=== PATIENT | female | born 1990 | race Caucasian/White ===

== ENCOUNTER → 2016-09-26 | Outpatient (CLI) | payer BC | LOC: MOB LAB 14:27 | PROVIDERS: ATTEND Family Medicine | DX: F39 Unspecified mood [affective] disorder (principal) | CPT/HCPCS: 36415; 84443 ==

== ENCOUNTER → 2016-10-22 | Outpatient (CLI) | payer BC ==
--- NOTE | 2016-10-22 18:18 | DI ---
LEFT THUMB EXAM, 10/22/2016 5:21 PM: Clinical History: Left thumb pain. Previous Exam: None at this facility. 3 views are submitted. There is no acute soft tissue, osseous, or joint abnormality. Reading: Normal left thumb exam.
== END ==
LOC: MOB RAD 17:22
DX: M79.645 Pain in left finger(s) (principal); F17.200 Nicotine dependence, unspecified, uncomplicated
CPT/HCPCS: 73140

== ENCOUNTER 2017-06-11 19:00 | Observation (INO) ==
[2017-06-11] MEDS ORDERED: NORMAL SALINE 10 ML SYRINGE FLUSH IVP PRN ×2 (19:26→21:47)
[2017-06-11] MEDS ORDERED: ONDANSETRON 4 MG/2 ML VIAL IVP ONE (19:26)
[2017-06-11] MEDS ORDERED: Sodium Chloride 0.9% 1,000 ML PRIMARY IV ONE (19:26)
[2017-06-11] MEDS ORDERED: HYDROmorphone 2 MG/1 ML IVP ONE ×2 (19:30→21:49)
[2017-06-11 19:43] LABS: BILIRUBIN,URINE NEGATIVE (NEG); CLARITY,URINE CLEAR (CLEAR); COLOR,URINE YELLOW (Y); GLUCOSE, URINE (UA) NEGATIVE (NEG); NITRATE,URINE NEGATIVE (NEG); OCCULT BLOOD,URINE Trace-intact (NEG); PROTEIN,URINE NEGATIVE (NEG); UROBILINOGEN,URINE 0.2 EU/dL (0.2)
[2017-06-11 19:45] LABS: BACTERIA,URINE FEW; SQUAMOUS EPITHELIAL CELL,UR MANY; URINE SAMPLE TYPE VOIDED SPECIMEN
[2017-06-11 19:48] LABS: EOSINOPHILS % (AUTO) 2.4 % (0-8); Hematocrit [HCT] 48.3 % (37.0-47.0); Hemoglobin [HGB] 16.4 g/dL (12.0-16.0); MEAN CORPUSCULAR HEMOGLOBIN 32.4 PG (27-31); MEAN CORPUSCULAR VOLUME 95 FL (81-99); MEAN PLATELET VOLUME 8.6 FL (7.4-12.2); MONOCYTES % (AUTO) 9.2 % (5-15); NEUTROPHILS % (AUTO) 58.6 % (50-80); RED BLOOD COUNT 5.06 10^6/uL (4.20-5.40)
[2017-06-11 19:49] LABS: BASOPHILS # (AUTO) 0.16 10*3/UL; BASOPHILS % (AUTO) 1.3 % (0-1); LYMPHOCYTES # (AUTO) 3.55 10*3/uL; MONOCYTES # (AUTO) 1.14 10*3/UL (0.3-0.8); NEUTROPHILS # (AUTO) 7.29 10*3/UL; PLATELET MORPHOLOGY COMMENT NORMAL MORPHOLOGY (NORM); RBC MORPHOLOGY COMMENT NORMAL MORPHOLOGY (NORM); WBC MORPHOLOGY COMMENT NORMAL MORPHOLOGY (NORM)
[2017-06-11 19:57] LABS: BLOOD UREA NITROGEN 9 mg/dL (7-22); LIPASE 48 IU/L (23-300); SERUM ALBUMIN 4.5 g/dL (3.5-4.8)
--- NOTE | 2017-06-11 21:22 | DI ---
EXAM: US Uterus, Limited CLINICAL HISTORY: Physician Notes: Tech Comments: TECHNIQUE: Real-time ultrasound of the maternal uterus (limited) with image documentation. COMPARISON: 06/10/17 FINDINGS: Fetus: The uterus demonstrates no evidence for gestational sac. Evaluation is limited given only transabdominal imaging provided. Adnexa: Right ovary measures 2.5 x 1.3 x 1.8 cm, with normal flow. The left ovary measures 20.5 x 2.1 x 1.9 cm, with normal flow. Free fluid: Mild free fluid is seen within the right adnexal region. IMPRESSION: 1. No sonographic evidence for intrauterine on these provided transabdominal only images. This may be related to very early though please note anovulatory or ectopic still cannot be technically excluded. Please correlate with beta hCG. Short interval follow-up is recommended. 2. Mild free fluid. Ovaries are sonographically unremarkable.
--- NOTE | 2017-06-11 21:24 | DI ---
EXAM: US Abdomen Complete CLINICAL HISTORY: Right lower quadrant pain TECHNIQUE: Real-time ultrasound of the abdomen (complete) with image documentation. COMPARISON: No relevant prior studies available. FINDINGS: Liver: Liver length 18.3 cm. Slightly heterogeneous and echogenic appearance to the parenchyma. No intrahepatic bile duct dilation. Gallbladder: Gallbladder is sonographically unremarkable. Common bile duct is normal caliber at 3 mm. No gallstones. Common bile duct: See above. Pancreas: Unremarkable as visualized. Kidneys: Right kidney length 10.8 cm. Left kidney length 12.0 cm. No stones. No hydronephrosis. Spleen: Splenic length 10.9 cm. Aorta: Unremarkable. No aneurysm. Inferior vena cava: Unremarkable. IMPRESSION: 1. Hepatic steatosis. 2. Regional anatomy otherwise unremarkable sonographically.
[2017-06-11] MEDS: Sodium Chloride 0.9% 1,000 ML PRIMARY IV SCH (23:20)
[2017-06-11] MEDS ORDERED: Ondansetron ODT Tab 4 MG TAB PO PRN (23:26)
[2017-06-11] MEDS ORDERED: Ondansetron ODT Tab 4 MG TAB PO ONE (23:27)
[2017-06-12] MEDS: MORPHINE SULFATE 2 MG/1 ML IVP PRN ×2 (03:29→07:38)
--- NOTE | 2017-06-12 03:39 | PDOC ---
Abdomen/Flank HPI - General Chief Complaint: Abdomen Pain Stated Complaint: abd. pain Date Seen by Provider: 06/11/17 Time Seen by Provider: 19:10 Source: POSITIVE: Patient, Old records Exam Limitations: POSITIVE: No limitations Nurse's Notes Reviewed & Considered: Yes - History of Present Illness Initial Comments: The patient is a 27-year-old female. She states she was seen in the clinic yesterday for lower abdominal pain; at that time patient believe she may have an ovarian cyst, as she has apparently been diagnosed was symptomatic ovarian cysts in the past. A test was done in the clinic and it was found to be positive; quantitative beta-hCG yesterday was 1258.5. Pelvic ultrasound was done from the clinic which showed no sonographic evidence of an intrauterine . There was some free fluid around the right adnexa. Patient was discharged to home. 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 Patient has had no vaginal bleeding. No fevers or chills. She's had some nausea but no vomiting. No diarrhea. No melena, hematochezia, hematemesis, dysuria or hematuria. Body Location Affected: REPORTS: Abdomen Timing: REPORTS: Abrupt Duration: <24 hours Severity: Moderate Quality: REPORTS: "Pain" Abdominal Pain Onset Location: REPORTS: RLQ, LLQ, Suprapubic Abdominal Pain Radiation: REPORTS: No radiation Context: REPORTS: Other (Recently diagnosed as being ) Modifying Factors: improves with: Nothing Associated Symptoms: REPORTS: Denies symptoms, Other (Nausea) Similar Symptoms Previously: No Recent Care Received: REPORTS: Recently Seen, Treated by MD (As above) Any Prior Injuries Related to Current Complaint?: No - Patient Home Medications Home Medications: Home Medications Sertraline HCl 1 tab PO DAILY #30 tab 12/18/16 hydrocodone 7.5 mg-acetaminophen 325 mg tablet 1 tab PO Q6H PRN #20 tab - Patient Allergies Allergies/Adverse Reactions: Allergies 3 Allergy/AdvReac Type Severity Reaction Status Date / Time amoxicillin Allergy Severe Anaphylaxis Verified 06/12/17 00:22 Penicillins Allergy Severe Anaphylaxis Verified 06/12/17 00:22 Past Medical History - heen HEENT History: Denies History Cardiovascular History: Denies History Respiratory History: Asthma Gastrointestinal History: Denies History Genitourinary History: Denies History Endocrine History: Denies History Musculoskeletal History: Denies History Prosthesis or Implant: No Neurological History: Denies History Blood Disorders: Denies History Psychiatric History: Denies History History of Sexually Transmitted Diseases: No Female Reproductive History: Denies History Obstetrical History: Denies History Cancer History: Denies History In Past Year Been Physically Harmed or Verbally Threatened: No History of MDRO: No History of Other Communicable Diseases: No Tobacco Use: Current Every Day Smoker Alcohol Use: Rarely In the Past 12 Months, Have Used or Abuse Any Substance: None Previous Surgical History: No Anesthesia Reactions: No Malignant Hyperthermia: No Significant Family History: Asthma, Cancer, COPD, Diabetes, Seizures Past Medical History Reviewed: Reviewed - No Changes ROS - Limitations ROS Limitations: No Limitations Constitution: REPORTS: Denies Symptoms Cardiovascular: REPORTS: Denies Cardiac Symptoms Respiratory: REPORTS: Denies Resp Symptoms Neurological: REPORTS: Denies Neuro Symptoms Gastrointestinal: REPORTS: Abdominal Pain, Nausea Endocrine: REPORTS: Denies Symptoms Musculoskeletal: REPORTS: Denies MS Symptoms Genitourinary: REPORTS: Denies Symptoms Eyes: REPORTS: Denies Symptoms ENT: REPORTS: Denies Symptoms Skin: REPORTS: Denies Skin Symptoms Lympathic: REPORTS: Denies Lympathic Symptoms Immunologic: POSITIVE: Denies Symptoms Psychiatric: POSITIVE: Denies Psych Symptoms Abdominal/Flank Pain PE - General Appearance General Appearance: POSITIVE: Alert, Cooperative, No Evidence of Trauma, Moderate Distress. NEGATIVE: No Acute Distress - HEENT HEENT: POSITIVE: Head Inspection Nml, Eyes Inspection Nml, Ears Inspection Nml, Nose Inspection Nml, Oral/Dental Inspect. Nml, Pharynx Inspect. Nml, PERRL, EOMI - Neck Neck: POSITIVE: Normal Inspection, No Apparent Injury - Respiratory Respiratory: POSITIVE: No Respiratory Distress, Breath Sounds Normal, Chest Non- Tender - Cardiovascular Cardiovascular: POSITIVE: Regular Rate and Rhythm, Heart Sounds Normal, Equal Pulses, Strong Pulses Peripheral Pulses: Radial (R): 2+, Radial (L): 2+ - Chest Chest: POSITIVE: Non Tender - Abdomen Abdomen: Soft: (All Quadrants), Normal Bowel Sounds: (All Quadrants), Denies Tenderness: (RUQ), (LUQ), No Splenomegaly: (All Quadrants), No Hepatomegaly: ( All Quadrants), No Guarding: (All Quadrants), No Rebound: (All Quadrants), No Palpable Pulse: (All Quadrants), No Palpabale Mass: (All Quadrants), No Distention: (All Quadrants), No Rigidity: (All Quadrants), Tenderness Noted: ( RLQ), (LLQ) Additional Abdominal Details: Abdominal examination shows bowel sounds to be present. Patient expresses somewhat poorly localized abdominal pain, but most prominent in the paraumbilical area and right hand left lower abdominal quadrants. No masses, organomegaly or rebound. 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 Mild free fluid around the right adnexa. Lab Results Reviewed by Me: Yes (quantitative beta-hCG down to 481.63) CBC and BMP: 06/11/17 19:45 06/11/17 19:45 - Patient's Progress Pain Medication Addressed: POSITIVE: Yes (Patient given Dilaudid IV for analgesia) School/Work Release Addressed: POSITIVE: Not Applicable Re-examine Time: 21:40 Re-Examine Comment: Case discussed with Dr. Carvalho, environmental conservation professor. There is some concern for ectopic . Advised the patient that I'm not completely sure what the source of her abdominal pain is, although an ectopic is my primary concern. Patient admitted to Dr. Carvalho for further evaluation and treatment. Patient received partial relief of her pain from analgesics administered in the emergency room. Status: POSITIVE: Improved, Re-Examined - Consult Consult (If Yes, Name of Consulting MD & Time Called): Yes (Dr. aCrvalho, OB/ MILITARY PROFESSIONAL, [id number]) Consulting MD will see pt:: POSITIVE: [facility] [place] Admit Counseled: POSITIVE: Patient, Family, RE: Lab Results, RE: Radiology Results, RE : DX, RE: Need for F/U Patient Care Time - Estimated PCT Patient Care Time (In Minutes): 60 Vital Signs - Recent Vital Signs Vital Signs: Vital Signs (Last 8 hours) Temp Pulse Pulse Resp BP BP Pulse Ox 06/11/17 23:12 98.5 F 113 H 20 101/71 91 06/11/17 22:30 98.0 F 93 18 106/59 94 - VS Reviewed Vital Signs Reviewed: Yes Discharge Clinical Impression: Abdominal pain, Abdominal pain in Discharge Disposition: Admit to Inpatient Condition: Good Date Decision to Admit to Inpatient: 06/11/17 Time Decision to Admit to Inpatient: 21:30
[2017-06-12 07:11] LABS: Hematocrit [HCT] 39.5 % (37.0-47.0); Hemoglobin [HGB] 13.3 g/dL (12.0-16.0); MEAN CORPUSCULAR HEMOGLOBIN 31.9 PG (27-31); MEAN CORPUSCULAR HGB CONC 33.6 g/dL (33-37); MEAN CORPUSCULAR VOLUME 95 FL (81-99); RED BLOOD COUNT 4.16 10^6/uL (4.20-5.40)
[2017-06-12 07:12] LABS: EOSINOPHILS % (AUTO) 2.1 % (0-8); LYMPHOCYTES # (AUTO) 3.86 10*3/uL; MEAN PLATELET VOLUME 8.8 FL (7.4-12.2); MONOCYTES % (AUTO) 8.6 % (5-15); NEUTROPHILS # (AUTO) 9.05 10*3/UL; NEUTROPHILS % (AUTO) 61.9 % (50-80)
[2017-06-12 07:13] LABS: BASOPHILS # (AUTO) 0.15 10*3/UL; EOSINOPHILS # (AUTO) 0.31 10*3/UL; MONOCYTES # (AUTO) 1.26 10*3/UL (0.3-0.8); PLATELET MORPHOLOGY COMMENT NORMAL MORPHOLOGY (NORM); RBC MORPHOLOGY COMMENT NORMAL MORPHOLOGY (NORM); WBC MORPHOLOGY COMMENT NORMAL MORPHOLOGY (NORM)
[2017-06-12] MEDS: Sodium Chloride 0.9% 1,000 ML PRIMARY IV SCH (07:38)
--- NOTE | 2017-06-12 08:36 | PDOC ---
HPI - History of Present Illness Date of Service: 06/12/17 Chief Complaint: Pelvic Pain, Positive Test History of Present Illness: This 27-year-old 2 para 1 female was seen in the outpatient clinic several days ago for a complaint of abdominal pain. During that evaluation she was found have a positive test with a quantitative hCG approximately 1200. Ultrasound revealed no intrauterine but no significant amount of free fluid in the pelvis. The patient was allowed to leave. She presented to the emergency room last evening complaining of increased pain but no bleeding area hCG obtained last night was down to 400. Her H&H were normal with a hemoglobin of 16. Ultrasound revealed, again, no intrauterine but no significant free fluid in the pelvis. The patient was admitted overnight for observation with a plan of repeating the hCG and CBC this morning. Her hemoglobin this morning was down to 13. She has persistent abdominal pain which is diffuse as well as right lower quadrant. Her vital signs are stable and normal. Pelvic ultrasound was repeated this morning, this time with a vaginal probe, and a significant blood clot is seen in the pelvis. Given the persistent abdominal pain and the new finding of significant volume of blood in the pelvis, the patient is recommended for laparoscopic treatment of her ectopic with probable salpingectomy depending on the condition of the tube. It is possible that she has expelled the out the end of the tube, given the precipitous drop in hCG. If this is the case, we will irrigate her abdomen and pelvis as much as possible and try to preserve the tube. Past Medical History Tobacco Use: Current Every Day Smoker Do you dip or chew tobacco: No In the Past 12 Months, Have Used or Abuse Any of the Following Substance: None Medication / Allergies Home Medications: Home Medications Medication Instructions Recorded Confirmed Type Sertraline HCl 1 tab PO DAILY #30 tab 12/18/16 06/11/17 Rx hydrocodone 7.5 mg-acetaminophen 1 tab PO Q6H PRN #20 tab 06/10/17 06/11/17 Rx 325 mg tablet Allergies/Adverse Reactions: Allergies 3 Allergy/AdvReac Type Severity Reaction Status Date / Time amoxicillin Allergy Severe Anaphylaxis Verified 06/12/17 06:59 Penicillins Allergy Severe Anaphylaxis Verified 06/12/17 06:59 Exam - Vitals Vital Signs: Vital Signs Temperature 97.2 F Temperature Source Temporal Artery Scan Pulse Rate [Pulse Oximeter] 84 Pulse Rate 93 Respiratory Rate 18 Blood Pressure [Left Arm] 108/60 Blood Pressure 106/59 Pulse Ox 95 Oxygen Delivery Method Room Air Height 5 ft 6 in Weight 195 lb Results - Labs CBC and BMP: 06/12/17 06:36 06/11/17 19:45 Assessment and Plan - Assessment / Plan Additional Assessment/Plan Details: Probable right tubal ectopic with hemorrhage. Planned laparoscopic treatment of ectopic with possible salpingectomy. - Time/Visit Time Spent With Patient: 15-25 Minutes
[2017-06-12] MEDS ORDERED: BUPIVACAINE 0.5% W/EPI MPF -30 ML VIAL IV ONE (08:41)
[2017-06-12] MEDS ORDERED: PROPOFOL 10 MG/1 ML (200 MG/20 ML) VIAL IV ONE (08:53)
[2017-06-12] MEDS ORDERED: MIDAZOLAM 5 MG/1 ML ONE (08:53)
[2017-06-12] MEDS ORDERED: fentaNYL Inj 250 MCG/5 ML VIAL ONE (08:53)
[2017-06-12] MEDS ORDERED: LIDOCAINE MPF 2% - 5 ML (20 MG/1 ML) ONE (08:53)
[2017-06-12] MEDS ORDERED: ROCURONIUM 10 MG/1 ML - 5 ML VIAL IVP ONE (08:54)
--- NOTE | 2017-06-12 09:16 | DI ---
US OB Transvaginal,06/12/2017 7:28 AM: Clinical History: Possible ectopic . Previous Exam: June 11, 2017 8:50 PM. Findings: Multiple transvaginal grayscale and color Doppler sonographic images are obtained through the pelvis, and demonstrate a large complex hypoechoic mass within the cul-de-sac measuring 6.8 x 2.8 cm in sagi ttal cross section. The uterus appears grossly normal. There is no evidence of gestational sac within the uterus. The endometrial stripe measures approximately 4 mm. Impression: Large hypoechoic mass within the cul-de-sac most likely representing clot or hemorrhage. This was not appreciated on the transabdominal exam.
[2017-06-12] MEDS ORDERED: KETAMINE 100 MG/1 ML - 5 ML ONE (09:23)
[2017-06-12] MEDS ORDERED: ONDANSETRON 4 MG/2 ML VIAL ONE (09:38)
[2017-06-12] MEDS ORDERED: SUGAMMADEX SODIUM 200 MG/2 ML VIAL IV ONE (09:38)
[2017-06-12] MEDS ORDERED: KETOROLAC 30 MG/1 ML VIAL ONE (09:38)
[2017-06-12] MEDS ORDERED: Lactated Ringers 1,000 ML PRIMARY IV ONE (09:39)
[2017-06-12] MEDS ORDERED: NORMAL SALINE 10 ML SYRINGE FLUSH IVP PRN ×2 (10:04→10:29)
[2017-06-12] MEDS ORDERED: IBUPROFEN 800 MG TABLET PO PRN (10:04)
[2017-06-12] MEDS ORDERED: LIDOCAINE HCL 2 % 10 ML JELLY URO-JECT TOPICAL PRN (10:04)
[2017-06-12] MEDS ORDERED: Ondansetron ODT Tab 8 MG TAB PO PRN (10:04)
--- NOTE | 2017-06-12 10:23 | OB.OP.NOTE ---
Operative Report Surgeon: Maia Bank Note Designer: Kraig Marie MD Anesthesia Type: General Anesthesia Provider: Walt Pollock CRNA Surgery Date: 06/12/17 Preoperative Diagnosis: Ectopic with Hemorrhage Postoperative Diagnosis: Left Ampullary Tubal Ectopic with Hemorrhage Procedure: Laparoscopic Left Salpingectomy Estimated Blood Loss (mL): 300 Fluids: 1200 ml Complications: None Findings at Surgery: Copious fresh blood and blood clot in the pelvis and upper abdomen. Obvious ectopic in the ampullary portion of the left fallopian tube with rupture. Normal right tube and ovary. Normal left ovary. Normal uterus. Indications for the Procedure: Abdominal pain with positive test and new finding of significant fluid in the abdomen and pelvis consistent with probable blood. Presumptive diagnosis ectopic with rupture. Description of Procedure: The patient was taken to the operating room and placed supine where general endotracheal anesthesia was administered. She was then placed in lithotomy position in Rusty stirrups. Examination under anesthesia was unremarkable. She was prepped and draped in the normal sterile fashion and her bladder was emptied of urine with a straight catheter. An open sided speculum was placed in the vagina and the anterior lip of the cervix was grasped with a single- tooth tenaculum. Uterus was sounded to a depth of 8 cm. A HUMI uterine manipulator was introduced into the endometrial cavity and the tubal lumen was applied with air. The tenaculum was removed from the cervix and the speculum was removed from the vagina. Attention was then turned to the abdomen were corpus and Marcaine with epinephrine was injected in the midline at the inferior edge of the umbilicus and just lateral to that on both sides. A scalpel was used to create a 5 mm vertical incision at the inferior edge of the umbilicus. Penetrate USED to grasp the abdominal wall just lateral to the incision on both sides and elevate while a 5 mm non-bladed laparoscopic trocar was introduced through the incision into the peritoneal cavity with a direct insertion technique under direct visualization with a 5 no meter scope placed within the port. The abdomen was insufflated with carbon dioxide. Photographs were taken of the pelvis with findings as noted above. A second 5 mm incision was then made in the midline just above the pubic bone after injection with Marcaine. A 5 mm non-bladed has A trocar was introduced an incision at this site into the perineal cavity under direct visualization. A suction oenologist was passed to the suprapubic port and this was used to irrigate and suction the pelvis. After the majority of blood and clot were removed inspection revealed the ectopic in the ambulatory portion of the left fallopian tube. A third incision was made on the left lateral aspect of the abdominal wall just below the umbilicus and lateral to the rectus muscle after injection with Marcaine. A 10 mm non-bladed Footwear Stitcher scopic trocar was introduced through small incision at this side into the perineal cavity under direct visualization. A gyrus PK bipolar grasper was introduced to this port and a grasper was introduced through the suprapubic port. The left fallopian tube was grasped and elevated and the gyrus device was used to cauterize and divide the mesosalpinx. The tube itself was and cauterized and divided at the cornea resulting in excision of the left fallopian tube. An Endo Catch bag was passed to the left lateral port and the tube was placed within the bag and brought up to the abdominal wall without difficulty. The port was then replaced in the pelvis and upper abdomen were copiously irrigated and suctioned out until the majority of the blood was removed. Inspection of the pelvis then revealed dense adhesions of the left ovary to the sigmoid colon. These adhesions were taken down using the gyrus device with caution to avoid bowel injury. The pelvis was again irrigated and inspected and good hemostasis was noted. There was no visible evidence of bowel injury. Allis mentioned and removed from the abdomen and the abdomen was desufflated with direct pressure to remove The Trocar Sleeves. The Sleeves Were Then Removed and the Skin Wounds Were Closed and Dressed Appropriate LEEP. The HUMI Was Removed from the Uterus with Good Hemostasis Noted. Sponge, Lap, and Needle Counts Were Correct 2. There Were No Complications at Surgery. The Patient Left to Recovery in Good Condition. Plan: Routine postoperative care and discharge to home.
--- NOTE | 2017-06-12 10:28 | CRNA.PROGR ---
Anesthesia Time - - Start date: 06/12/17 End date: 06/12/17 - Procedure/Recovery Time Anesthesia : Time In: 09:03 Anesthesia : Time Out: 10:20 Anesthesia : Total Time: 77 - Total Anesthesia Time Total Anesthesia Time (minutes): 77 - Other Weight: 88.451 kg Height: 5 ft 6 in Body Mass Index (BMI): 31.4 Physical Status: P2 Anesthesia Type: General Anesthesia : ET (Laparoscopy with left salpingectomy)
[2017-06-12] MEDS ORDERED: PROMETHAZINE 25 MG/1 ML VIAL IM PRN (10:29)
[2017-06-12] MEDS ORDERED: fentaNYL Inj 100 MCG/2 ML VIAL IVP PRN (10:29)
[2017-06-12] MEDS ORDERED: HYDROmorphone 2 MG/1 ML IVP PRN (10:29)
[2017-06-12] MEDS ORDERED: Lactated Ringers 1,000 ML PRIMARY IV SCH (10:30)
--- NOTE | 2017-06-12 10:31 | CRNA.PROGR ---
Anesthesia Recovery Phase I - Post Anesthesia Evaluation Patient's Condition on Arrival in Phase I: Stable Pain Level: 1
[2017-06-12] MEDS: oxyCODONE-ACETAMINOPHEN 5-325 TAB PO PRN ×3 (11:25→18:45)
[2017-06-12] MEDS: KETOROLAC 15 MG/1 ML VIAL IVP PRN ×2 (13:51→21:32)
[2017-06-12 16:00] LABS: Hematocrit [HCT] 33.8 % (37.0-47.0); Hemoglobin [HGB] 11.2 g/dL (12.0-16.0); MEAN CORPUSCULAR HEMOGLOBIN 31.4 PG (27-31); MEAN CORPUSCULAR HGB CONC 33.1 g/dL (33-37); MEAN CORPUSCULAR VOLUME 95 FL (81-99); RED BLOOD COUNT 3.57 10^6/uL (4.20-5.40)
[2017-06-12 16:01] LABS: MEAN PLATELET VOLUME 8.7 FL (7.4-12.2)
[2017-06-12] MEDS ORDERED: ZOLPIDEM 10 MG TABLET PO ONE (18:49)
[2017-06-12 20:46] VITALS: RESP 20
[2017-06-13 00:31] VITALS: O2SAT 93
[2017-06-13 04:12] VITALS: BP 106/59; TEMP 98.1
[2017-06-13] MEDS: KETOROLAC 15 MG/1 ML VIAL IVP PRN (06:49)
[2017-06-13] MEDS: oxyCODONE-ACETAMINOPHEN 5-325 TAB PO PRN (06:49)
--- NOTE | 2017-06-13 09:22 | PDOC(PROG) ---
Subjective Post Op Day: 1 Pain Management: PO Askew Catheter: No Flatus: Yes Diet: Regular Ambulating: Yes Concerns / Additional Information: Mary is feeling much better this morning. Ready to go home. Assesstment / Plan Assessment / Plan: POD 1, doing well. Ready for discharge. Discharge for home.
--- NOTE | 2017-06-13 09:25 | DCSUMMARY ---
Hospitalization Summary Admit Date: 06/11/17 Discharge Date: 06/13/17 Primary Diagnosis:: Left Tubal Ectopic with Hemorrhage Hospital Course: The patient was admitted from the ED for possible ectopic . She was hemodynamically stable with no evidence of bleeding on admission. She was observed overnight with repeat US in the morning which revealed a new finding of significant blood in the pelvis. She was taken for laparoscopy during which a ruptured left ampullary tubal ectopic was identified and the tube was removed. Her post op course was uncomplicated and she was discharged to home on POD 1 in good condition. Exam - Vitals Vital Signs: Vital Signs Temperature 98.1 F Temperature Source Temporal Artery Scan Pulse Rate [Pulse Oximeter] 97 Pulse Rate 85 Respiratory Rate 20 Blood Pressure [Left Arm] 106/59 Blood Pressure 117/83 Pulse Ox 93 Oxygen Flow Rate .5 Oxygen Delivery Method Room Air Height 5 ft 6 in Weight 196 lb
== END 2017-06-13 09:40 | disposition home or self-care (01) ==
LOC: ER 19:00 → MED/SURG 19:00 → OPS 06-12 08:38 → MED/SURG 06-12 10:49
PROVIDERS: ADMIT Obstetrics & Gynecology; ATTEND Obstetrics & Gynecology
PROC: [UNRECOGNIZED PROCEDURE] (2017-06-12 09:00)

== ENCOUNTER 2019-04-01 06:51 | Inpatient (IN) ==
[2019-04-01] MEDS ORDERED: KETOROLAC 15 MG/1 ML VIAL IVP ONE (07:09)
[2019-04-01] MEDS ORDERED: Sodium Chloride 0.9% 1,000 ML PRIMARY IV ONE (07:09)
[2019-04-01] MEDS ORDERED: ONDANSETRON 4 MG/2 ML VIAL IVP ONE (07:09)
[2019-04-01] MEDS ORDERED: Acetaminophen 1000mg Inj 1,000 MG/100 ML VIAL IV PRN ×2 (07:18→21:28)
[2019-04-01 07:43] LABS: Hematocrit [HCT] 40.2 % (37.0-47.0); Hemoglobin [HGB] 13.6 g/dL (12.0-16.0); MEAN CORPUSCULAR HGB CONC 33.8 g/dL (33-37); MEAN CORPUSCULAR VOLUME 88.2 FL (81-99); MEAN PLATELET VOLUME 10.8 FL (7.4-12.2); NEUTROPHILS % (AUTO) 81.1 % (50-80); RED BLOOD COUNT 4.56 10^6/uL (4.20-5.40)
[2019-04-01 07:44] LABS: BASOPHILS # (AUTO) 0.04 10*3/UL; BASOPHILS % (AUTO) 0.4 % (0-1); EOSINOPHILS # (AUTO) 0.04 10*3/UL; EOSINOPHILS % (AUTO) 0.4 % (0-8); LYMPHOCYTES # (AUTO) 1.08 10*3/uL; MONOCYTES # (AUTO) 0.63 10*3/UL (0.3-0.8); MONOCYTES % (AUTO) 6.1 % (5-15); NEUTROPHILS # (AUTO) 8.38 10*3/UL; PLATELET MORPHOLOGY COMMENT NORMAL MORPHOLOGY (NORM); RBC MORPHOLOGY COMMENT NORMAL MORPHOLOGY (NORM); WBC MORPHOLOGY COMMENT NORMAL MORPHOLOGY (NORM)
[2019-04-01 07:57] LABS: BLOOD UREA NITROGEN 7 mg/dL (7-22); SERUM ALBUMIN 4.3 g/dL (3.5-4.8)
[2019-04-01] MEDS ORDERED: Lactated Ringers 1,000 ML PRIMARY IV ONE ×2 (09:37→11:13)
[2019-04-01 09:40] LABS: BILIRUBIN,URINE NEGATIVE (NEG); CLARITY,URINE CLEAR (CLEAR); COLOR,URINE YELLOW (Y); GLUCOSE, URINE (UA) NEGATIVE (NEG); OCCULT BLOOD,URINE MODERATE (NEG); PROTEIN,URINE NEGATIVE (NEG); UROBILINOGEN,URINE 0.2 EU/dL (0.2)
[2019-04-01 09:54] LABS: SQUAMOUS EPITHELIAL CELL,UR MODERATE; URINE SAMPLE TYPE CLEAN CATCH URINE; WBC,URINE 0-1
[2019-04-01 09:55] LABS: BACTERIA,URINE RARE
[2019-04-01] MEDS ORDERED: Sodium Chloride 0.9% vial 10 ML ONE (10:04)
[2019-04-01] MEDS ORDERED: BUPIVACAINE 0.25% W/ EPI - 10 ML VIAL ONE (10:04)
[2019-04-01] MEDS ORDERED: LIDOCAINE HCL 2 % 10 ML JELLY URO-JECT TOPICAL ONE ×2 (10:05→10:50)
[2019-04-01] MEDS ORDERED: Sodium Chloride 0.9% 100 ML IV ONE ×2 (10:15→12:56)
[2019-04-01] MEDS ORDERED: KETAMINE 100 MG/1 ML - 5 ML ONE (10:54)
[2019-04-01] MEDS ORDERED: LIDOCAINE MPF 2% - 5 ML (20 MG/1 ML) ONE (11:07)
[2019-04-01] MEDS ORDERED: fentaNYL Inj 250 MCG/5 ML VIAL ONE (11:07)
[2019-04-01] MEDS ORDERED: PROPOFOL 10 MG/1 ML (200 MG/20 ML) VIAL IV ONE (11:07)
[2019-04-01] MEDS ORDERED: ROCURONIUM 10 MG/1 ML - 5 ML VIAL IVP ONE ×2 (11:09→11:44)
[2019-04-01] MEDS ORDERED: CefOXitin Inj 2 GM in Sodium Chloride 0.9% 100 ML IV ONE (11:16)
[2019-04-01] MEDS ORDERED: ONDANSETRON 4 MG/2 ML VIAL ONE (12:11)
[2019-04-01] MEDS ORDERED: SUGAMMADEX SODIUM 200 MG/2 ML VIAL IV ONE (12:11)
[2019-04-01] MEDS ORDERED: ONDANSETRON 4 MG/2 ML VIAL IVP PRN (12:32)
[2019-04-01] MEDS ORDERED: Zolpidem Tab 5 MG TAB PO PRN (12:32)
[2019-04-01] MEDS ORDERED: HYDROmorphone 2 MG/1 ML ONE (12:46)
[2019-04-01] MEDS: HYDROmorphone 2 MG/1 ML IVP PRN ×4 (12:47→17:35)
[2019-04-01] MEDS ORDERED: ERTAPENEM 1 GM VIAL ONE (12:55)
[2019-04-01] MEDS: Ertapenem Inj 1 GM in Sodium Chloride 0.9% 100 ML IV SCH (13:02)
[2019-04-01] MEDS: oxyCODONE-ACETAMINOPHEN 5-325 TAB PO PRN ×3 (14:28→23:11)
[2019-04-01] MEDS: IBUPROFEN 600 MG TABLET PO PRN (20:36)
[2019-04-01] MEDS: DOCUSATE 100 MG CAPSULE PO SCH (22:24)
[2019-04-02] MEDS: IBUPROFEN 600 MG TABLET PO PRN ×3 (05:46→19:06)
[2019-04-02 06:07] LABS: BASOPHILS % (AUTO) 0.2 % (0-1); EOSINOPHILS % (AUTO) 0.4 % (0-8); Hematocrit [HCT] 37.2 % (37.0-47.0); Hemoglobin [HGB] 12.1 g/dL (12.0-16.0); MEAN CORPUSCULAR HGB CONC 32.5 g/dL (33-37); MEAN CORPUSCULAR VOLUME 91.6 FL (81-99); MEAN PLATELET VOLUME 10.6 FL (7.4-12.2); MONOCYTES % (AUTO) 9.5 % (5-15); NEUTROPHILS % (AUTO) 79.3 % (50-80); RED BLOOD COUNT 4.06 10^6/uL (4.20-5.40)
[2019-04-02 06:08] LABS: MONOCYTES # (AUTO) 0.87 10*3/UL (0.3-0.8); NEUTROPHILS # (AUTO) 7.25 10*3/UL
[2019-04-02 06:10] LABS: LYMPHOCYTES # (AUTO) 0.82 10*3/uL
[2019-04-02 06:11] LABS: BASOPHILS # (AUTO) 0.02 10*3/UL; EOSINOPHILS # (AUTO) 0.04 10*3/UL; PLATELET MORPHOLOGY COMMENT NORMAL MORPHOLOGY (NORM); RBC MORPHOLOGY COMMENT NORMAL MORPHOLOGY (NORM); WBC MORPHOLOGY COMMENT NORMAL MORPHOLOGY (NORM)
[2019-04-02] MEDS: oxyCODONE-ACETAMINOPHEN 5-325 TAB PO PRN (08:10)
[2019-04-02] MEDS: DOCUSATE 100 MG CAPSULE PO SCH ×2 (08:10→21:08)
[2019-04-02] MEDS ORDERED: ACETAMINOPHEN 325 MG TABLET PO PRN (09:23)
[2019-04-02] MEDS: oxyCODONE IR Tab 5 MG TAB PO PRN ×4 (09:28→21:08)
[2019-04-02] MEDS: Ertapenem Inj 1 GM in Sodium Chloride 0.9% 100 ML IV SCH (12:43)
[2019-04-03] MEDS: oxyCODONE IR Tab 5 MG TAB PO PRN ×2 (04:37→08:22)
[2019-04-03 04:41] VITALS: RESP 16
[2019-04-03 06:39] VITALS: BP 116/59; TEMP 99; O2SAT 95
[2019-04-03] MEDS: IBUPROFEN 600 MG TABLET PO PRN (08:23)
[2019-04-03] MEDS: DOCUSATE 100 MG CAPSULE PO SCH (08:24)
[2019-04-03] MEDS ORDERED: GUAIFENESIN 600 MG TABLET PO SCH (09:00)
== END 2019-04-03 11:05 | disposition home or self-care (01) | DRG 358 ==
LOC: ER 06:51 → OR 10:05 → MED/SURG 13:39
PROVIDERS: ADMIT Obstetrics & Gynecology; ATTEND Obstetrics & Gynecology